=== PATIENT | male | born 1955 | race Caucasian/White ===

== ENCOUNTER → 2019-07-07 16:36 | Outpatient (CLI) | payer OTHER, SELFPAY ==
--- NOTE | ~2019-07-07 | XR_ITS ---
XR hand LT 2V DATE: 07/07/2019 16:51 INDICATION: Lateral wrist and hand pain; no injury. TECHNIQUE: 3 views COMPARISON: None FINDINGS: There is osteoarthritis at the triscaphe and first carpometacarpal, first metacarpophalange al and to a lesser extent second and third metacarpophalangeal joints and at multiple interphalangeal joints, consistent with polyarticular osteoarthritis. No erosive change is noted. No fracture, dislocation, periosteal reaction or bone destruction. IMPRESSION: Polyarticular osteoarthritis Reviewed, dictated and finalized at location B. SSIONS GATE ATTENDANT
--- NOTE | ~2019-07-07 | XR_ITS ---
XR wrist LT min 3V DATE: 07/07/2019 16:51 INDICATION: Left lateral wrist and hand and thumb pain; no injury. TECHNIQUE: 4 views COMPARISON: None FINDINGS: There is osteophytosis at the triscaphe and first carpometacarpal and first metacarpophalan geal joints. These correspond to the areas of clinical complaint of pain. There is mild osteoarthriti s at the second and third metacarpal phalangeal joints. No fracture or dislocation, periosteal reaction or bone destruction is detected. No erosive changes a re noted. IMPRESSION: Polyarticular osteoarthritis Reviewed, dictated and finalized at location B. R MIXER
== END ==
PROVIDERS: Visit Provider Emergency Medicine
DX: M19.032 Primary osteoarthritis, left wrist (principal)
CPT/HCPCS: 73110; 73120

== ENCOUNTER → 2020-07-13 14:54 | Outpatient (CLI) | payer OTHER, SELFPAY ==
--- NOTE | ~2020-07-13 | XR_ITS ---
EXAMINATION: XR wrist LT min 3V DATE: 07/13/2020 15:10 INDICATION: Left wrist joint pain and osteoarthritis. TECHNIQUE: 4 views of left wrist were obtained. COMPARISON: Left wrist radiographs 07/07/2019 FINDINGS: Bone alignment is normal. No fracture. There is moderate osteoarthritis of triscaphe joint and first carpometacarpal joint. IMPRESSION: 1. Stable polyarticular osteoarthritis. Reviewed, dictated and finalized at location A. FIC ROUTING ENGINEER
== END ==
PROVIDERS: PCP Emergency Medicine; Visit Provider Plastic Surgery
DX: M19.032 Primary osteoarthritis, left wrist (principal)
CPT/HCPCS: 73110

== ENCOUNTER → 2020-08-09 01:06 | Outpatient (CLI) | payer OTHER, SELFPAY ==
[2020-08-09 18:27] LABS: SARS-CoV-2 RNA PCR Negative
== END ==
PROVIDERS: Family Provider Internal Medicine; PCP Emergency Medicine; Visit Provider Plastic Surgery
DX: Z01.812 Encounter for preprocedural laboratory examination (principal); Z20.822 Contact with and (suspected) exposure to COVID-19
CPT/HCPCS: C9803; U0003; U0005

== ENCOUNTER 2020-08-09 14:15 | Outpatient (CLI) | payer OTHER, SELFPAY ==
[2020-08-09 15:06] LABS: Anion Gap 6 mmol/L (8-16); Blood Urea Nitrogen 19 mg/dL (9-20); Calcium 9.5 mg/dL (8.4-10.2); Carbon Dioxide 31 mmol/L (22-30); Chloride 104 mmol/L (98-107); Estimated Glomerular Filt Rate > 60; Glucose 121 mg/dL (75-110); Potassium 4.1 mmol/L (3.4-5.0); Sodium 141 mmol/L (137-145)
== END 2020-08-09 14:16 | disposition home or self-care (01) ==
LOC: ANHSURGERY 14:18
PROVIDERS: Anesthesiology; PCP Emergency Medicine; Visit Provider Plastic Surgery
DX: Z01.812 Encounter for preprocedural laboratory examination (principal); I10 Essential (primary) hypertension
CPT/HCPCS: 36415; 80048

== ENCOUNTER 2020-08-12 00:58 | Day surgery (SDC) | payer OTHER, SELFPAY ==
[2020-08-09 11:15] VITALS: BMI 26.5
--- NOTE | 2020-08-09 11:20 | PC.NURSE ---
PT STATES HE HAD AN EKG A FEW WEEKS AGO WITH DR MAZARIEGOS IN [place]. WILL CONTACT THEM FOR A COPY.
[2020-08-12] VITALS (8 sets, daily range): BP systolic 107–128; BP diastolic 70–79; PULSE 55–62; RESP 12–16; TEMP 36.1–36.3; O2SAT 92–98
--- NOTE | ~2020-08-12 | XR_ITS ---
XR surgery orthopedic 08/12/2020 09:04 Indication: Left trapezium resection of the thumb Procedure: 7 fluoroscopic views of the left thumb. 2 minutes of fluoroscopy. Comparison: 07/13/2020 Findings: There are surgical changes consistent with surgical resection of the trapezium. There is so ft tissue change consistent with surgery. Please refer to procedural report for details. Impression: 1: Status post recent surgical resection of the trapezium. Correlate with procedural note. Reviewed, dictated and finalized at location B. 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 Correlate with proce dural note.
[2020-08-12] MEDS: ACETAMINOPHEN 500 MG TABLET 1000 MG PO (06:20)
--- NOTE | 2020-08-12 06:37 | WPDANESEPPF ---
Anes - Initial Pre Proc Eval Procedure: Operation Date: 08/12/20 07:30 Proposed Procedures p Left Trapezium Resection Arthroplasty with Internal Brace - Bryan Blandon MD Date/Time: 08/12/20 06:37 Surgeon: Bryan Blandon MD Pre Op Diagnosis: left 1st cmc joint OA Patient Data Age: 64 Gender: M Height: 5 ft 10 in Weight: 84.7 kg Allergies Allergy/AdvReac Type Severity Reaction Status Date / Time No Known Allergies Allergy Verified 08/12/20 06:16 Home Medications Medication Instructions Recorded Confirmed Type aspirin [Adult Aspirin EC Low 81 mg PO HS 08/09/20 08/09/20 History Strength] atorvastatin 20 mg PO HS 08/09/20 08/09/20 History carvedilol phosphate 40 mg PO HS 08/09/20 08/09/20 History ezetimibe 10 mg PO HS 08/09/20 08/09/20 History hydrochlorothiazide 12.5 mg PO HS 08/09/20 08/09/20 History lisinopril 40 mg PO HS 08/09/20 08/09/20 History Patient hx anesthesia problems: none Family hx anesthesia problems: none PMFSH Past Medical History Medical History (Updated 08/12/20 @ 06:38 by Bg Ha MD) HTN (hypertension) Hyperlipidemia Overweight Surgical History Surgical History (Updated 08/12/20 @ 06:38 by Bg Ha MD) H/O excision of ganglion cyst Family History Family History Other Family history of coronary artery disease Hypertension Social History Social History Smoking packs per day: 1 Smoking cigarettes per day: 20.0 Years smoked: 20 Smoking pack-years: 20.00 Smoking status: Former smoker Tobacco type: cigarettes Second hand tobacco smoke exposure: No Smoking end date: 07/02/94 Alcohol intake: current Drinks per week: 2 Substance use: never Living arrangements: with family Spiritual care concerns: No Anes - Eval Final PreProcedure Day of Procedure 08/12/20 06:37 Patient weight: overweight Heart: regular rate and rhythm Lungs: clear to auscultation Airway: Mallampati scale class II Neurological: alert and oriented Last oral intake: >/= 8 hours ASA classification: II Emergent: no Anesthetic plan: proceed Anesthesia type and monitoring: general LMA and standard monitoring Informed Consent: The patient's anesthetic plan and its attendant risks and benefits were discussed with the patient/family/POA. Questions were solicited and answers provided to the satisfaction of the patient/family/POA.
[2020-08-12] MEDS: LACTATED RINGERS 1,000 ML 30 ML IV CONT (06:38)
--- NOTE | 2020-08-12 07:05 | WPDHPUPDATE1 ---
History and Physical Update Update Date/Time: 08/12/20 07:05 History and Physical has been reviewed, including an updated exam of the patient. There are NO changes in the patient's condition. Risks, benefits, and alternatives have been discussed and questions answered. Patient agrees to proceed with procedure.
[2020-08-12] MEDS: ceFAZolin 2 GM/D5W 50 ML 2 GM/50 ML BAG IVPB (07:32)
[2020-08-12] MEDS: LIDO 1%/EPINEPHRINE 1:100,000 50 ML VIAL 30 ML INFILTRATE (07:54)
--- NOTE | 2020-08-12 08:39 | SUR.OPER ---
left hand implant system hand/wrist internal brace ligament augmentation repair, lot [id number], exp 2025-07-01. Arthrex
[2020-08-12] MEDS: BUPIVACAINE HCL 0.5% PF 30 ML VIAL 8 ML INFILTRATE (09:06)
--- NOTE | 2020-08-12 09:20 | PM.PROC ---
Procedure Note - Detailed Date of procedure: 08/12/20 Pre-op diagnosis: left 1st cmc joint OA Post-op diagnosis: same Procedure performed: Left trapezium resection arthroplasty with Arthrex internal brace Description of procedure: The patient is left 1st carpal metacarpal joint area was marked with the patient in the holding area. He was taken to the operating room and placed supine on the operating table. Time-out was held and confirmed. He was given general anesthesia with LMA. The site was prepped and draped in usual fashion a marking was made for the planned incision this area was infiltrated with 1% lidocaine with epinephrine the tourniquet was inflated to 250 mmHg. The dog leg incision was made as marked. The interval between the extensor pollicis brevis and the abductor pollicis was opened. The 1st dorsal compartment was opened. Cutaneous nerves were sought but not found in this immediate area. The capsule was incised with a 15 blade. It was dissected off the base of the metacarpal and over the surface of the trapezium. It was dissected sharply as far as I could reach. It was then divided with an osteotome and brought out piecemeal with rongeur. The site was imaged. The radial base of the 2nd metacarpal was identified and a guidewire placed there images determined the position was satisfactory. The Arthrex anchor was applied. The radial base of the 1st metacarpal was dissected and the radial and of the internal brace was anchored. Images were obtained showing distraction and compression as well as abduction and adduction. The capsule was repaired with 3-0 Vicryl suture. The skin was closed with a running 4-0 intradermal suture. 0.5% Marcaine was infiltrated in the osteotomy site and over the dorsal wrist. A bulky bandage with the thumb spica splint was applied and he was discharged from the operating room stable condition. The had been given 2 g Ancef preop and prescribe hydrocodone 5/325 16. For discharge Anesthesia: GLMA Surgeon: Bryan Blandon MD Search Engine Optimization Analyst: Angélica Smith Drains: No Packing: No Pathology: none sent Complications: No immediate complications Condition: stable Disposition: PACU
== END 2020-08-12 10:43 | disposition home or self-care (01) ==
PROVIDERS: Family Provider Internal Medicine; PCP Emergency Medicine; Visit Provider Plastic Surgery
PROC: (CPT 25447; principal; 2020-08-12 07:30)
DX: M18.12 Unilateral primary osteoarthritis of first carpometacarpal joint, left hand (principal); I10 Essential (primary) hypertension; E78.5 Hyperlipidemia, unspecified; Z87.891 Personal history of nicotine dependence
CPT/HCPCS: 25447; 36415; 80048; A9270; C9803; J0690; J1100; J2250; J2405; J2704; J3010; J7120; U0003; U0005

== ENCOUNTER → 2021-03-17 14:05 | Outpatient (CLI) | payer OTHER, SELFPAY ==
--- NOTE | ~2021-03-17 | XR_ITS ---
EXAMINATION: XR wrist LT min 3V EXAM DATE: 03/17/2021 14:19 INDICATION: Left wrist pain, surg 08/12/20 . TECHNIQUE: Left wrist frontal, frontal with ulnar deviation, oblique and lateral projections obtained and reviewed. There is no prior study for comparison. FINDINGS: Left wrist scapholunate joint space is maintained. Status post trapezium resection. There is moderate triscaphe primary osteoarthritis. There are no acute fractures or dislocations identified . There is no subcutaneous gas. The soft tissue is unremarkable. There are no radiopaque foreign bodies. IMPRESSION: 1. Moderate left triscaphe osteoarthritis. 2. Interval trapezium resection. Reviewed, dictated and finalized at location B.
== END ==
PROVIDERS: PCP Emergency Medicine; Visit Provider Plastic Surgery
DX: M19.032 Primary osteoarthritis, left wrist (principal)
CPT/HCPCS: 73110